=== PATIENT | male | born 1965 | race Caucasian/White ===

== ENCOUNTER → 2017-02-26 | Outpatient (CLI) | payer OTHER ==
--- NOTE | 2017-02-26 16:08 | CARD ---
APPROVED REPORT INDICATION Dyspnea Reason : Patient complained of shortness of breath PROCEDURE The patient underwent an Exercise Stress Test using the Maulik Protocol. Blood pressure, heart rate, a nd EKG were monitored. An Echocardiogram was performed by sales support technician in four stages in quad fashion. At peak stress four se lected images were obtained and placed side by side with resting images for comparison. STRESS ECHO FINDINGS The resting Echocardiogram showed abnormalnormal left ventricular contractility with an estimated Eje ction Fraction of about 55 %. Normal augmentation of myocardial wall segments using a 16 segment model. Test Type: Exercise Stress Nurse/Tech: Sue Lopez RN Test Indications: SOA. Pt states that he exercises on a daily basis without complication but can fe el winded going up a flight of stairs at home. Cardiac History and Allergies: SEE EMR Medications: SEE EMR Medical History: SEE EMR Resting ECG: SR Resting Heart Rate: 59 bpm Resting Blood Pressure: 140/56mmHg Pretest Chest Pain: None Nurse/Tech Notes S1S2, lungs CTA, denied chest pain, dizziness or SOA. Consent: The procedure was explained to the patient in lay terms. Informed consent was witnessed. Leonel eout was entered into [employer]. History and Stress Test performed by Sue Lopez R.N. Stress Symptoms SOA, diaphoresis. Pt was running at this point on the treadmill. Denied chest tightness or pain. POST EXERCISE Reason for Termination: Reached target heart rate Target HR: 142 Max HR: 162 bpm 97% of Maximum Predicted HR: 167 bpm Exercise duration: 11:39 min:sec, Stage Exercise capacity: 12.8METs Max Blood Pressure: 166/72mmHg Blood Pressure response to exercise: Normal blood pressure response during stress. Heart Rate response to exercise: Normal Chest Pain: No. Arrhythmia: No. ST Change: Yes. INTERPRETATION Stress EKG Conclusion: Baseline EKG showed sinus rhythm. ST depression inferolateral leads at peak s tress suspicious for ischemia. No arrhythmias. Preliminary Notification Critical Value: No <Conclusion> Treadmill exercise stress echocardiogram did not show any evidence of ischemia or infarct. Normal left ventricle systolic function with ejection fraction estimated at 55%. Patient had excellent activity tolerance. Low risk for cardiac events.
--- NOTE | 2017-02-26 16:26 | CARD ---
APPROVED REPORT EXAM: Two-dimensional and M-mode echocardiogram with Doppler and color Doppler. Other Information Quality : Good Rhythm : NSR INDICATION Dyspnea 2D DIMENSIONS RVDd2.2 (2.9-3.5cm)Left Atrium(2D)3.8 (1.6-4.0cm) IVSd1.0 (0.7-1.1cm)Aortic Root(2D)2.7 (2.0-3.7cm) LVDd5.4 (3.9-5.9cm)LVOT Diameter2.3 (1.8-2.4cm) PWd1.2 (0.7-1.1cm)LVDs3.5 (2.5-4.0cm) FS (%) 35.3 %SV89.5 ml LVEF(%)64.2 (>50%) Aortic Valve AoV Peak Bernardo.120.7cm/sAoV VTI22.5cm AO Peak GR.5.8mmHgLVOT Peak Bernardo.111.7cm/s AO Mean GR.3mmHgAVA (VMAX)3.80cm2 GLADYS (VTI)4.10cm2 Mitral Valve MV E Gmxfuozz36.5cm/sMV DECEL [id number] MV A Guaynchz27.4cm/sE/A Ratio1.3 Tricuspid Valve TR P. Mymkosfw452jn/sRAP [id number] TR Peak Gr.18koLhVMFB44lwJl Pulmonary Vein S1 Dvsecqqe62.5cm/sD2 Qyijfohr13.1cm/s PVa [id number] LEFT VENTRICLE The left ventricle is normal size. There is mild asymmetric posterior wall left ventricular hypertrop hy. Left ventricle ejection fraction is normal. The Ejection Fraction is 55%. Transmitral Doppler aziza w pattern is Grade I-abnormal relaxation pattern. RIGHT VENTRICLE The right ventricle is normal size. The right ventricular systolic function is normal. ATRIA The left atrium size is normal. The right atrium size is normal. The interatrial septum is intact wit h no evidence for an atrial septal defect or patent foramen ovale as noted on 2-D or Doppler imaging. AORTIC VALVE The aortic valve is normal in structure and function. Doppler and Color Flow revealed no significant aortic regurgitation. There is no significant aortic valvular stenosis. MITRAL VALVE The mitral valve is normal in structure and function. There is no evidence of mitral valve prolapse. There is no mitral valve stenosis. Doppler and Color-flow revealed mild mitral regurgitation. TRICUSPID VALVE The tricuspid valve is normal in structure and function. Doppler and Color Flow revealed trace to mil d tricuspid regurgitation. There is mild pulmonary hypertension. The PA pressure was estimated at 30 mmHg. There is no tricuspid valve stenosis. PULMONIC VALVE The pulmonary valve is normal in structure and function. Doppler and Color Flow revealed no pulmonic valvular regurgitation. There is no pulmonic valvular stenosis. GREAT VESSELS The aortic root is normal in size. The ascending aorta is normal in size. The IVC is dilated and seth apses >50% with inspiration. PERICARDIAL EFFUSION There is no evidence of significant pericardial effusion. Critical Notification Critical Value: No <Conclusion> Left ventricle ejection fraction is normal. The Ejection Fraction is 55%. Transmitral Doppler flow pattern is Grade I-abnormal relaxation pattern. Mild mitral regurgitation. Trace to mild tricuspid regurgitation. There is mild pulmonary hypertension. The PA pressure was estimated at 30 mmHg. There is no evidence of significant pericardial effusion.
== END | disposition home or self-care (01) ==
LOC: ECHO 12:20
PROVIDERS: ATTEND Internal Medicine Pulmonary Disease
DX: I08.1 Rheumatic disorders of both mitral and tricuspid valves (principal); R06.02 Shortness of breath; R06.00 Dyspnea, unspecified
CPT/HCPCS: 93017; 93306; 93350

== ENCOUNTER → 2020-12-30 | Outpatient (CLI) | payer OTHER ==
[~2020-12-30] MED LIST: CONTRAST GIVEN. MC PRN; GADOTERATE 5 MMOL/10ML VIAL. INT ART ONE; IOHEXOL 300 MG/ML 50 ML VIAL. INT ART ONE; LIDOCAINE 1% Multi-Dose 20 ML VIAL. ID ONE
--- NOTE | 2020-12-30 17:35 | KCIC ---
MRI RIGHT SHOULDER ARTHROGRAM Clinical indications: Right shoulder pain. Has had previous shoulder surgery in 2004. Impingement syn drome. TECHNIQUE: After intra-articular injection of gadolinium, post arthrogram MRI sequences of the right shoulder were performed in all 3 planes. An additional ABER sequence was performed. The intra-articul ar injection of gadolinium was performed by another radiologist and is dictated under separate report . FINDINGS: On series 6 and image 17, shallow partial articular surface tear of the lateral aspect of t he infraspinatus tendon insertion onto the foot plate of the greater tubercle is seen. This extends t hrough less than 50 percent of the thickness of the tendon. No high-grade partial tear or complete te ar of the rotator cuff is seen otherwise. In this area, there is underlying cystic change of the post erior lateral aspect of the humeral head secondary to chronic impingement. There is mild degenerative spurring of the right AC joint. The right AC joint is widened. There is paramagnetic susceptibility artifact here. Therefore this finding may be related to previous trauma such as an AC joint separatio n and/or surgery. There is a small spur of the inferior edge of the acromial process. This finding m ay impinge the acromial humeral space. No subdeltoid or subacromial bursitis is seen. Subscapularis t endon is intact. The tendon of long of the biceps is intact. No muscle atrophy is seen. Small sublabr al foramen of anterior superior aspect of the glenoid labrum is seen which may be noted normally. No tear of the glenoid labrum is seen. No paralabral ganglion cyst or spinoglenoid notch ganglion cyst i s seen. The glenohumeral joint is unremarkable and no loose body is seen. IMPRESSION: Shallow small partial articular surface tear of the lateral aspect of the infraspinatus t endon attachment to the greater tubercle. This overlies an area of chronic impingement cystic change of the posterior lateral aspect of the humeral head. Old posttraumatic or postsurgical change of the right AC joint. Electronically signed by: Octavio Mancuso MD (12/30/2020 5:33 PM) [id number]
--- NOTE | 2020-12-30 18:04 | KCIC ---
Fluoroscopically guided injection of the right shoulder to facilitate a MR arthrogram 12/30/2020 Clinical history: Chronic right shoulder pain. History of right shoulder impingement. Technique: After the risks and benefits of the procedure were explained to the patient, written infor med consent was obtained. The anterior skin surface of the right shoulder was prepped and draped in s terile fashion. 1% lidocaine was used as local anesthetic. Under fluoroscopic guidance, a 22-gauge sp inal needle was advanced into the anterior aspect of the right glenohumeral joint. 15 cc of a solutio n containing Omnipaque 300, lidocaine, normal saline and 0.1 cc of CLARISCAN were injected into the r ight glenohumeral joint under fluoroscopic control. Following this the needle was removed and hemosta sis achieved at the puncture site. A sterile bandage was placed on the skin puncture site. The patien t tolerated the procedure well and there were no immediate complications. The total fluoroscopic time for this study was 20 seconds. 1 fluoroscopic captured digital radiograph of the right shoulder was obtained. The patient was taken to MRI for further imaging. Impression: Technically successful injection of the right shoulder joint under fluoroscopy to facilit ate a MR arthrogram as discussed above. Electronically signed by: Desmond Mccoy MD (12/30/2020 6:02 PM) [id number]
== END | disposition home or self-care (01) ==
LOC: KCIC 13:48
PROVIDERS: ATTEND Family Medicine
DX: M25.511 Pain in right shoulder (principal); M75.41 Impingement syndrome of right shoulder; Z79.899 Other long term (current) drug therapy
CPT/HCPCS: 23350; 73219; 77002; A9575; J3490; Q9967; 73040